=== PATIENT | female | born 1955 | race Hispanic/Latino ===

== ENCOUNTER 2017-02-11 13:25 | Emergency (ER) | payer MEDICARE ==
[2017-02-11 13:38] VITALS: RESP 20; O2SAT 96
[2017-02-11] MEDS ORDERED: Sodium Chloride 0.9% 1,000 ML IV ONE (14:42)
[2017-02-11 15:06] LABS: BASO % 0.6 % (0.0-2.0); EOS % 0.7 % (0.0-4.0); HEMATOCRIT 39.8 % (34.0-47.0); LYMPH % 13.5 % (20.0-40.0); MEAN CORPUSCULAR HEMOGLOBIN 30.5 pg (27.0-31.0); MEAN CORPUSCULAR HGB CONC 33.5 g/dL (33.0-37.0); MEAN PLATELET VOLUME 7.3 fL (7.2-11.7); MONO % 13.9 % (0.0-10.0); RED CELL DISTRIBUTION WIDTH 15.2 % (11.5-14.5)
[2017-02-11 15:12] LABS: CHLORIDE 106 mmol/L (98-107); POTASSIUM 4.1 mmol/L (3.6-5.2); SODIUM 141 mmol/L (132-148)
[2017-02-11 15:14] LABS: BILIRUBIN,TOTAL 0.3 mg/dL (0.2-1.3); GFR AFRICAN-AMERICAN > 60
[2017-02-11 15:15] LABS: ALB/GLOB RATIO 1.5 (1.0-2.1); ALKALINE PHOSPHATASE 53 U/L (38-126); ALT/SGPT 12 U/L (9-52); AST/SGOT 21 U/L (14-36); BLOOD UREA NITROGEN 9 mg/dL (7-17); CALCIUM 9.6 mg/dl (8.6-10.4); CARBON DIOXIDE 27 mmol/L (22-30); GLUCOSE,RANDOM 77 mg/dL (65-105); TOTAL PROTEIN 6.6 g/dL (6.3-8.3)
--- NOTE | 2017-02-11 15:47 | CT ---
PROCEDURE: CT HEAD WITHOUT CONTRAST. HISTORY: lung CA with brain mets, worsening dizziness COMPARISON: None available. TECHNIQUE: Axial computed tomography images were obtained through the head/brain without intravenous contrast. Radiation dose: Total exam DLP = 813.36 mGy-cm. This CT exam was performed using one or more of the following dose reduction techniques: Automated exposure control, adjustment of the mA and/or kV according to patient size, and/or use of iterative reconstruction technique. FINDINGS: HEMORRHAGE: No intracranial hemorrhage. BRAIN: Diffuse atrophy with prominence of the ventricles and sulci noted. No mass effect or edema. Hypodense regions involving the bilateral temporal lobes and left parietal lobe likely related to vasogenic edema. Underlying neoplasm is not excluded. Nonspecific white matter changes. VENTRICLES: No hydrocephalus. CALVARIUM: Unremarkable. PARANASAL SINUSES: Unremarkable as visualized. No significant inflammatory changes. MASTOID AIR CELLS: Partial opacification/ fluid involving the left mastoid air cells. The right mastoid air cells appear clear. OTHER FINDINGS: None. IMPRESSION: Evidence of vasogenic edema involving bilateral temporal lobes and the left parietal lobe. Underlying neoplasm is not excluded. MRI without and with IV contrast recommended for further evaluation. Partial opacification/ fluid involving the left mastoid air cells. Correlate for mastoiditis.
--- NOTE | 2017-02-11 15:58 | C.PDOC ---
History Of Present Illness 61 year old female presents to the ER with a complaint of lightheadedness, and episodes of delayed speech/thought process for the past 1 week. 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 Patient is currently visiting from [place] for a month, her oncologist is in [facility]. Patient denies fever, visual changes, slurred speech, facial droop, extremity weakness, sensory changes, fever, chest pain, SOB. Time Seen by Provider: 02/11/17 14:11 Chief Complaint (Nursing): Dizziness/Lightheaded History Per: Patient History/Exam Limitations: no limitations Onset/Duration Of Symptoms: Days (7) Severity: Moderate Past Medical History Reviewed: Historical Data, Nursing Documentation, Vital Signs Vital Signs: Last Vital Signs Temp 98 F 02/11/17 16:32 Pulse 79 02/11/17 16:32 Resp 20 02/11/17 16:32 BP 142/77 02/11/17 16:32 Pulse Ox 96 02/11/17 16:38 - Medical History PMH: Depression Other PMH: Stage IV small cell CA with metastasis to the brain - [facility] Procedures OP RED-INT FIX RAD/ULNA (02/26/14) REPLAC M/S IMMOB DEV NEC (03/04/14) Family History: States: No Known Family Hx - Social History Hx Tobacco Use: Yes Hx Alcohol Use: Yes Hx Substance Use: No - Immunization History Hx Tetanus Toxoid Vaccination: No Hx Influenza Vaccination: No Hx Pneumococcal Vaccination: No Review Of Systems Except As Marked, All Systems Reviewed And Found Negative. Constitutional: Negative for: Fever, Chills Cardiovascular: Negative for: Chest Pain, Palpitations Respiratory: Negative for: Cough, Shortness of Breath Gastrointestinal: Negative for: Nausea, Vomiting, Abdominal Pain, Diarrhea Neurological: Positive for: Confusion, Other (Lightheadedness, delayed thought and speech process) Physical Exam - Physical Exam Appears: Well, Non-toxic, No Acute Distress Skin: Normal Color, Warm, Dry Head: Atraumatic, Normacephalic Eye(s): bilateral: Normal Inspection, PERRL, EOMI Oral Mucosa: Moist Neck: Normal, Normal ROM, Supple Chest: Symmetrical Cardiovascular: Rhythm Regular, No Murmur Respiratory: No Accessory Muscle Use, No Rales, No Rhonchi, No Wheezing, Other ( Coarse/decreased breath sounds on left) Gastrointestinal/Abdominal: Normal Exam, Bowel Sounds, Soft, No Tenderness Extremity: Normal ROM Extremity: Bilateral: Atraumatic, Normal Color And Temperature, Normal ROM Neurological/Psych: Oriented x3, Normal Speech, Normal Cognition, Normal Cranial Nerves, No Cerebellar Signs, Normal Motor, Normal Sensation, Other ( Slow to respond to questions) ED Course And Treatment - Laboratory Results Result Diagrams: 02/11/17 15:00 02/11/17 15:00 O2 Sat by Pulse Oximetry: 96 (Room air) Pulse Ox Interpretation: Normal - Radiology CXR: Interpreted by Me, Viewed By Me (no infiltratese/effusions) - CT Scan/US CT HEAD Other Rad Studies (CT/US): Read By Radiologist, Radiology Report Reviewed CT/US Interpretation: Accession No. : [id number]. Patient Name / ID : ELIZABETH Jean / [id number]. Exam Date : 02/11/2017 15:17:36 ( Approved ). Study Comment : Sex / Age : F / [id number]. Creator : Suzanna Marley MD. Dictator : Suzanna Marley MD. Unix Manager : Gymnastic Teacher : Suzanna Marley MD. Approver2 : Report Date : 02/11/2017 15:43:19. My Comment : . PROCEDURE: CT HEAD WITHOUT CONTRAST. HISTORY: lung CA with brain mets, worsening dizziness. COMPARISON: None available. TECHNIQUE: Axial computed tomography images were obtained through the head/brain without intravenous contrast. Radiation dose: Total exam DLP = 813.36 mGy-cm. This CT exam was performed using one or more of the following dose reduction techniques: Automated exposure control, adjustment of the mA and/or kV according to patient size, and/or use of iterative reconstruction technique. FINDINGS: HEMORRHAGE: No intracranial hemorrhage. BRAIN: Diffuse atrophy with prominence of the ventricles and sulci noted. No mass effect or edema. Hypodense regions involving the bilateral temporal lobes and left parietal lobe likely related to vasogenic edema. Underlying neoplasm is not excluded. Nonspecific white matter changes. VENTRICLES: No hydrocephalus. CALVARIUM: Unremarkable. PARANASAL SINUSES: Unremarkable as visualized. No significant inflammatory changes. MASTOID AIR CELLS: Partial opacification/ fluid involving the left mastoid air cells. The right mastoid air cells appear clear. OTHER FINDINGS: None. IMPRESSION: Evidence of vasogenic edema involving bilateral temporal lobes and the left parietal lobe. Underlying neoplasm is not excluded. MRI without and with IV contrast recommended for further evaluation. Partial opacification/ fluid involving the left mastoid air cells. Correlate for mastoiditis. Progress Note: Blood work, CT head ordered and reviewed. IV NS bolus ordered. Spoke with patient's radiation oncologist, patient has stage IV small cell Ca with shante goldstein. He recommends giving patient Rx for decadron 2mg BID, to be used only if patient's symptoms worsen since she had prior episode of steroid psychosis. Patient states she already has Decadron at home, and does not need Rx. She does not want to be admitted to hospital. Reevaluation Time: 16:20 Reassessment Condition: Improved (Patient is well appearing, and able to ambulate normally in ED. She would like to be discharged home, was instructed to follow up with her radiation oncologist when she returns to [place]. She understands she should return to ED if she develops worserning/concerning symptoms.) Disposition Counseled Patient/Family Regarding: Studies Performed, Diagnosis, Need For Followup - Disposition Disposition: HOME/ ROUTINE Disposition Time: 16:20 Condition: STABLE Additional Instructions: FOLLOW UP WITH DR KERRY MORIN WHEN YOU RETURN TO [place] IF SYMPTOMS WORSEN, START TAKING DECADRON 2MG BY MOUTH TWICE DAILY, AND THEN TAPER OFF SLOWLY RETURN TO ER IF SYMPTOMS WORSEN Instructions: Non-Small Cell Lung Cancer (ED) Forms: General Discharge Instructions Print Language: PALESTINIAN - POA Present On Arrival: None - Clinical Impression Clinical Impression: Small cell lung cancer, Brain metastasis, Dizziness - Scribe Statement The provider has reviewed the documentation as recorded by the Scribe Santy Sepulveda All medical record entries made by the Scribe were at my direction and personally dictated by me. I have reviewed the chart and agree that the record accurately reflects my personal performance of the history, physical exam, medical decision making, and the department course for this patient. I have also personally directed, reviewed, and agree with the discharge instructions and disposition.
[2017-02-11 16:33] VITALS: BP 142/77; PULSE 79; TEMP 98
--- NOTE | 2017-02-11 17:20 | RAD ---
HISTORY: lung ca, left upper lobe mass. COMPARISON: Chest x-ray performed 09/06/14 TECHNIQUE: Chest PA and lateral FINDINGS: Right-sided MediPort extends the cavoatrial junction. LUNGS: Interstitial prominence. Irregular medial left upper lobe opacity. Right lower lobe infiltrate. Medial left lung apex opacity likely represents reported lung mass. Please note that chest x-ray has limited sensitivity for the detection of pulmonary masses. PLEURA: No significant pleural effusion identified. No definite pneumothorax . CARDIOVASCULAR: Heart size appears within normal limits. OSSEOUS STRUCTURES: Degenerative changes. VISUALIZED UPPER ABDOMEN: Unremarkable. OTHER FINDINGS: None. IMPRESSION: Right-sided MediPort. Interstitial prominence. Irregular medial left upper lobe opacity. Right lower lobe infiltrate. Medial left lung apex opacity likely represents reported lung mass. Study marked for PA review.
== END 2017-02-11 16:37 | disposition home or self-care (01) ==
LOC: C.ER 13:25
DX: R42 Dizziness and giddiness (principal); C34.90 Malignant neoplasm of unspecified part of unspecified bronchus or lung; C79.31 Secondary malignant neoplasm of brain